=== PATIENT | female | born 1955 | race Caucasian/White ===

== ENCOUNTER → 2017-01-11 | Outpatient (CLI) | payer OTHER ==
--- NOTE | 2017-01-11 11:06 | XR ---
EXAMINATION TYPE: XR foot complete RT DATE OF EXAM ORDERED: 01/11/2017 10:49 AM HISTORY: M79.671 Pain in right foot. COMPARISON: None. FINDINGS: There are mild degenerative changes in the right first MTP joint. There are hammertoe defo rmities of the second through fifth digits. No fracture, dislocation or other acute osseous lesion is seen. No calcaneal spurs are evident. IMPRESSION: 1. NO ACUTE OSSEOUS LESION. 2. MINIMAL DEGENERATIVE CHANGE, RIGHT FIRST MTP JOINT. 3. HAMMERTOE DEFORMITIES.
== END ==
LOC: RADXRMAIN 10:27
PROVIDERS: ATTEND Internal Medicine
DX: M19.071 Primary osteoarthritis, right ankle and foot (principal); M20.41 Other hammer toe(s) (acquired), right foot

== ENCOUNTER → 2017-05-02 | Outpatient (CLI) | payer OTHER ==
--- NOTE | 2017-05-07 07:30 | MM ---
Reason for exam: screening (asymptomatic). History: Patient is postmenopausal. Physical Findings: A clinical breast exam by your physician is recommended on an annual basis and results should be correlated with mammographic findings. MG Screening Mammo w CAD Bilateral CC and MLO view(s) were taken. No prior studies available for comparison. There are scattered fibroglandular densities. Finding: There are few typically benign round calcifications in both breasts. There is a small chronic nodularity in the right breast. There is no discrete abnormality. ASSESSMENT: Benign, BI-RAD 2 RECOMMENDATION: Routine screening mammogram of both breasts in 1 year.
== END | disposition home or self-care (01) ==
LOC: RADMAMWWP 16:18
PROVIDERS: ATTEND Internal Medicine
DX: Z12.31 Encounter for screening mammogram for malignant neoplasm of breast (principal)

== ENCOUNTER → 2017-05-08 | Outpatient (CLI) | payer OTHER ==
--- NOTE | 2017-05-08 15:45 | BD ---
EXAMINATION TYPE: MG DEXA axial skeleton. DATE OF EXAM: 05/08/2017 COMPARISON: NONE CLINICAL HISTORY: 62-year-old female postmenopausal screening Height: 67 IN Weight: 181 LBS FRAX RISK QUESTIONS: Alcohol (3 or more units per day): NO Family History (Parent hip fracture): NO Glucocorticoids (More than 3mos): NO (Ex: prednisone, prednisolone, methylprednisolone, dexamethasone, and hydrocortisone). History of Fracture in Adulthood: NO Secondary Osteoporosis: 1. Type 1 Diabetes: NO 2. Hyperthyroidism: NO 3. Menopause before 45: AGE 48 4. Malnutrition: NO 5. Chronic liver disease: NO Rheumatoid Arthritis: NO Current Tobacco Use: NO RISK FACTORS HISTORY OF: History of Wrist Fracture: DOES NOT KNOW WHICH ONE When: AGE 47 Active: YES Diet low in dairy products/other sources of calcium: YES Postmenopausal woman: AGE 48 MEDICATIONS: Additional Medications: NONE EXAM MEASUREMENTS: Bone mineral densitometry was performed using the [employer] System. Bone mineral density as measured about the Lumbar spine is: ----- L1-L4(G/cm2): 1.386 T Score Values are as follows: ----- L2: 1.3 ----- L3: 1.7 ----- L4: 2.2 ----- L1-L4: 1.7 Bone mineral density BASELINE Bone mineral density about the R hip (g/cm2): 0.856 Bone mineral density about the L hip (g/cm2): 0.923 T Score values are as follows: -----R Neck: -1.3 -----L Neck: -0.8 -----R Total: -0.5 -----L Total: 0.4 Bone mineral density BASELINE IMPRESSION: Osteopenia as indicated by T score values in the right hip. There is slightly increased risk of fracture and the patient may be considered for treatment. Re-Screen 2-5 years. NOTE: T-SCORE=SD OF THE YOUNG ADULT MEAN.
== END | disposition home or self-care (01) ==
LOC: RADBDWWP 12:12
PROVIDERS: ATTEND Internal Medicine
DX: M85.80 Other specified disorders of bone density and structure, unspecified site (principal); Z78.0 Asymptomatic menopausal state
CPT/HCPCS: 77080

== ENCOUNTER → 2019-11-19 | Outpatient (CLI) | payer OTHER ==
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
--- NOTE | 2019-11-23 09:11 | MM ---
Reason for exam: screening (asymptomatic). Last mammogram was performed 2 years and 7 months ago. History: Patient is postmenopausal. Physical Findings: A clinical breast exam by your physician is recommended on an annual basis and results should be correlated with mammographic findings. MG Screening Mammo w CAD Bilateral CC and MLO view(s) were taken. XCCL view(s) were taken of the right breast. Prior study comparison: May 02, 2017, bilateral MG screening mammo w CAD. There are scattered fibroglandular densities. No significant changes when compared with prior studies. ASSESSMENT: Benign, BI-RAD 2 RECOMMENDATION: Routine screening mammogram of both breasts in 1 year.
== END | disposition home or self-care (01) ==
LOC: RADMAMWWP 13:42
PROVIDERS: ATTEND Internal Medicine
DX: Z12.31 Encounter for screening mammogram for malignant neoplasm of breast (principal); M85.80 Other specified disorders of bone density and structure, unspecified site
CPT/HCPCS: 77067; 77080

== ENCOUNTER → 2020-09-08 | Outpatient (CLI) | payer MEDICARE, OTHER ==
--- NOTE | 2020-09-08 16:29 | US ---
EXAMINATION TYPE: US kidneys/renal and bladder DATE OF EXAM: 09/08/2020 COMPARISON: NONE CLINICAL HISTORY: R10.9 FLANK PAIN. EXAM MEASUREMENTS: Right Kidney: 10.1 x 4.3 x 4.6 cm Left Kidney: 10.1 x 4.2 x 4.4 cm Right Kidney: No hydronephrosis or masses seen, cystic lesion centrally right kidney Left Kidney: No hydronephrosis or masses seen Bladder: wnl There is no evidence of calyceal dilatation at this point in time. Suspect thin-walled cyst centrally in the right kidney with technologist not providing measurements No shadowing nephrolithiasis is se en. No solid masses are identified on images 30. The urinary bladder is satisfactorily distended. Bilateral ureteral jets are not seen. IMPRESSION: No hydronephrosis noted bilaterally.
== END | disposition home or self-care (01) ==
LOC: RADUSWWP 15:50
PROVIDERS: ATTEND Internal Medicine
DX: R10.9 Unspecified abdominal pain (principal)
CPT/HCPCS: 76770

== ENCOUNTER → 2020-11-21 | Outpatient (CLI) | payer MEDICARE, OTHER ==
--- NOTE | 2020-11-22 10:00 | MM ---
Reason for exam: screening (asymptomatic). Last mammogram was performed 1 year ago. History: Patient is postmenopausal. Took hormonal contraceptives for 3 years. Physical Findings: A clinical breast exam by your physician is recommended on an annual basis and results should be correlated with mammographic findings. MG Screening Mammo w CAD Bilateral CC and MLO view(s) were taken. Prior study comparison: November 19, 2019, bilateral MG screening mammo w CAD. May 02, 2017, bilateral MG screening mammo w CAD. There are scattered fibroglandular densities. There is no discrete abnormality. No significant changes when compared with prior studies. ASSESSMENT: Negative, BI-RAD 1 RECOMMENDATION: Routine screening mammogram of both breasts in 1 year.
== END | disposition home or self-care (01) ==
LOC: RADMAMWWP 10:12
PROVIDERS: ATTEND Internal Medicine
DX: Z12.31 Encounter for screening mammogram for malignant neoplasm of breast (principal)
CPT/HCPCS: 77067

== ENCOUNTER → 2021-01-19 | Outpatient (CLI) | payer MEDICARE, OTHER ==
--- NOTE | 2021-01-19 12:30 | XR ---
EXAMINATION TYPE: XR lumbosacral spine min 4V DATE OF EXAM: 01/19/2021 CLINICAL HISTORY: pain COMPARISON: NONE TECHNIQUE: Frontal, lateral, and oblique images of the lumbar spine are obtained. FINDINGS: There are 5 lumbar type vertebral bodies identified. The lumbar spine shows satisfactory alignment without evidence of acute fracture or dislocation. Vertebral body heights are within normal limits. Moderate to severe multilevel degenerative disc space narrowing. The overlying soft tissue appears unremarkable. IMPRESSION: No acute fracture or dislocation is seen in the lumbar spine.ICD 10 NO FRACTURE, INITIAL EVALUATION
== END | disposition home or self-care (01) ==
LOC: RADXRMAIN 11:50
PROVIDERS: ATTEND Internal Medicine
DX: M54.5 Low back pain (principal)
CPT/HCPCS: 72110

== ENCOUNTER → 2023-01-18 | Outpatient (CLI) | payer MEDICARE, OTHER ==
--- NOTE | 2023-01-18 11:11 | BD ---
EXAMINATION TYPE: Axial Bone Density DATE OF EXAM: 01/18/2023 CLINICAL HISTORY: 67 years old Female. ICD-10 CODE: N95.1 POST MENOPUASAL Height: 66.5in Weight: 168lb FRAX RISK QUESTIONS: History of Fracture in Adulthood: yes Secondary Osteoporosis: 3. Menopause before 45: yes RISK FACTORS HISTORY OF: Spine Fracture: pt unsure where she has compression fracture When: Family History of Osteoporosis: pt unsure of family history Active: somewhat Postmenopausal woman: yes Lost more than 2 inches in height since high school: yes MEDICATIONS: Thyroid Medications: Which medication: Levothyroxine How Lon years Additional Medications: vitamin d Additional History: hand fx EXAM MEASUREMENTS: Bone mineral densitometry was performed using the [employer] System. Bone mineral density as measured about the Lumbar spine is: ----- L1-L4(G/cm2): 1.358 T Score Values are as follows: ----- L1: 1.2 ----- L2: 0.8 ----- L3: 1.6 ----- L4: 2.0 ----- L1-L4: 1.5 Z Score Values are as follows: ----- L1: 2.5 ----- L2: 2.1 ----- L3: 2.8 ----- L4: 3.2 ----- L1-L4: 2.7 Bone mineral density has: Decreased -7.0% since study of: 11-19-19 Bone mineral density about the R hip (g/cm2): 0.916 Bone mineral density about the L hip (g/cm2): 1.044 T Score values are as follows: -----R Neck: -1.5 -----L Neck: -0.9 -----R Total: -0.7 -----L Total: 0.3 Z Score values are as follows: -----R Neck: -0.2 -----L Neck: 0.4 -----R Total: 0.3 -----L Total: 1.4 Bone mineral density has: Decreased -2.3% since study of: 11-19-19 FRAX%s: The graph provided illustrates a 15.6% chance for a major osteoporotic fx and a 2.0% chance f or the hips probability for fx in 10 years time. IMPRESSION: Osteopenia (T Score between -2.5 and -1). There is slightly increased risk of fracture and the patient may be considered for treatment. Re-Screen 2-5 years. NOTE: T-SCORE=SD OF THE YOUNG ADULT MEAN.
--- NOTE | 2023-01-21 08:07 | MM ---
Reason for Exam: Screening (asymptomatic). Last mammogram was performed 2 year(s) and 2 month(s) ago. Patient History: Menarche at age 16. First Full-Term at age 20. Postmenopausal. Patient used Hormonal Contraceptives for 3 years. Risk Values: Leatha 5 year model risk: 1.4%. NCI Lifetime model risk: 4.8%. Prior Study Comparison: 05/02/2017 Bilateral Screening Mammogram, [facility]. 11/19/2019 Bilateral Screening Mammogram, [facility]. 11/21/2020 Bilateral Screening Mammogram, [facility]. Tissue Density: The breast tissue is almost entirely fat. Findings: Analyzed By CAD. There is no suspicious group of microcalcifications or new suspicious mass in either breast. Overall Assessment: Negative, BI-RAD 1 Management: Screening Mammogram of both breasts in 1 year. A clinical breast exam by your physician is recommended on an annual basis and results should be correlated with mammographic findings. Electronically signed and approved by: Mark Bazan M.D. Radiologis
== END | disposition home or self-care (01) ==
LOC: RADBDWWP 07:50
PROVIDERS: ATTEND Internal Medicine
DX: Z12.31 Encounter for screening mammogram for malignant neoplasm of breast (principal); M85.89 Other specified disorders of bone density and structure, multiple sites; Z78.0 Asymptomatic menopausal state
CPT/HCPCS: 77067; 77080